=== PATIENT | female | born 1955 | race Two or more races ===

== ENCOUNTER → 2018-02-28 | Outpatient (CLI) | payer OTHER ==
[~2018-02-28] MED LIST: GADOBUTROL 7.5 MMOL/7.5 ML PFS ONE
== END | disposition home or self-care (01) ==
LOC: CFH 10:28
PROVIDERS: ATTEND Family Medicine
DX: E04.2 Nontoxic multinodular goiter (principal); R51 Headache
CPT/HCPCS: 70553; 76536; A9585

== ENCOUNTER → 2018-05-19 | Outpatient (CLI) | payer OTHER | END | disposition home or self-care (01) | LOC: CVU 06:46 | PROVIDERS: ATTEND Family Medicine | DX: I87.8 Other specified disorders of veins (principal); R07.9 Chest pain, unspecified; R42 Dizziness and giddiness; Z85.3 Personal history of malignant neoplasm of breast | CPT/HCPCS: 93306 ==

== ENCOUNTER 2019-09-10 11:04 | Outpatient (CLI) | payer OTHER | END 2019-09-10 23:59 | disposition home or self-care (01) | LOC: CFH 11:04 | PROVIDERS: ATTEND Family Medicine | DX: Z12.31 Encounter for screening mammogram for malignant neoplasm of breast (principal); Z90.11 Acquired absence of right breast and nipple; F10.21 Alcohol dependence, in remission; Z78.0 Asymptomatic menopausal state; M81.0 Age-related osteoporosis without current pathological fracture; N95.9 Unspecified menopausal and perimenopausal disorder; N64.89 Other specified disorders of breast | CPT/HCPCS: 77080; 77067 ==

== ENCOUNTER → 2021-06-25 | Outpatient (CLI) | payer MEDICARE, OTHER | END | disposition home or self-care (01) | LOC: CFH 08:21 | PROVIDERS: ATTEND Family Medicine | DX: Z12.31 Encounter for screening mammogram for malignant neoplasm of breast (principal); M85.88 Other specified disorders of bone density and structure, other site | CPT/HCPCS: 77063; 77067; 77080 ==